=== PATIENT | male | born 1985 | race Caucasian/White ===

== ENCOUNTER 2017-01-13 12:53 | Day surgery (SDC) | payer OTHER ==
[~2017-01-13] VITALS: Ht 200.7 cm; Wt 115.7 kg
[~2017-01-13 12:53] MED LIST: PROMETHAZI6.25 MG/5 PO; ZOFRAN ODT4 MG PO
--- NOTE | 2017-01-13 15:09 | NUR ---
01/13/17 1509 Laura Garza PT ASLEEP. 1501: PT ARRIVED TO PACU REPONDING AND TALKING TO RN.
--- NOTE | 2017-01-14 15:15 | OR ---
[facility] [address], [place] [address] Signed DATE OF PROCEDURE: 01/13/17 PREOPERATIVE DIAGNOSIS Left-sided abdominal pain, negative CT for diverticulitis. POSTOPERATIVE DIAGNOSIS: Normal-appearing colon and ilium, mild proctitis. PROCEDURE Total colonoscopy to cecum with intubation of the ileum and biopsy of ileum and rectum. SURGEON: Galilea Kerns MD. ANESTHESIA: Intravenous sedation with Fentanyl 100 mcg and Versed 6 mg. INDICATION This 31-year-old white man is a patient of Dr. Gerardo Warren of [place], [place], and seen by me on December 06, 2016. He was self-referred for nausea and left lower abdominal pain, history of rectal bleeding, and possible hemoptysis. The patient was treated in the past for pneumonia. He had fevers and blood in the stool and was treated with Cipro and Flagyl. Most of the symptoms resolved. He did have progressive cough, however, and a CT scan of the abdomen and pelvis with contrast performed on November 28, 2016, confirmed no evidence of diverticulosis, but did show some atelectatic changes or possible pneumonia. His as well as his 2-year-old child have also had "pneumonia." Concern is maintained for possible ventilation issues in the home including mold and so on. No such findings have been discovered so far he says. He did have associated diarrhea which was entirely cleared up. A left lower lung base pneumonia, which was seen on the CT scan, is clinically resolving. He is admitted at this time to undergo colonoscopy to better characterize the left-sided abdominal pain problem understanding the risks of bleeding, infection, and perforation. FINDINGS The prep was excellent. Complete colonoscopy was undertaken to the cecum. The scope was passed into the ilium without problem. The ilium appeared normal. The biopsies were obtained to assess for occult inflammatory bowel disease. There was mild proctitis and biopsies of the rectum obtained as well. I saw no evidence of diverticulosis, colitis proper, neoplasm or other issues. DESCRIPTION OF PROCEDURE The patient brought to [facility] endoscopy suite and placed in lateral decubitus position. Given intravenous sedation to the point of slurred speech and nystagmus. Digital rectal examination was normal. Electronically Signed By: GALILEA KERNS MD 01/14/17 1515 PATIENT NAME: ALY RUBALCAVA OPERATIVE REPORT DATE OF : 85 PHYSICIAN: GALILEA KERNS MD REPORT #: [id number] REPORT IS CONFIDENTIAL AND NOT TO BE RELEASED WITHOUT AUTHORIZATION [facility] [address] [place], [place] [address] Signed An Olympus video colonoscope was passed in the rectum and manipulated throughout the colon ultimately intubating the cecum without problem. The ileocecal valve was easily intubated and the terminal ilium entered. Lymphoid aggregates in the submucosal area were noted. Biopsies were obtained, although there was no clear evidence of inflammatory bowel disease. The scope was withdrawn to the cecum and biopsies taken there as well. Careful withdrawal of scope showed no sign of abnormality throughout withdrawal the scope, specifically no polyps, diverticular formation, colitis, or cancer. Retroflex view in the rectum was reasonably normal, though there was mild proctitis, probably bowel prep related. The scope was removed and the patient was taken to recovery room in good condition. CONCLUDING DIAGNOSIS No evidence of diverticulosis or inflammatory bowel disease or neoplasm. PLAN He will return to see us in 4-8 weeks. He will maintain a regular diet with added fiber as tolerated. Should he have problems in the meantime, he will let us know. MD BARTOLO Delacruz/Yuridia /[id number] cc: Gerardo Warren MD Electronically Signed By: GALILEA KERNS MD 01/14/17 1515 PATIENT NAME: GEORGELAVELLEALY OPERATIVE REPORT DATE OF : 85 PHYSICIAN: GALILEA KERNS MD REPORT #: [id number] REPORT IS CONFIDENTIAL AND NOT TO BE RELEASED WITHOUT AUTHORIZATION
== END 2017-01-13 15:39 | disposition home or self-care (01) ==
LOC: OPS 12:53 → DS 12:53 → OPS 14:00
PROVIDERS: Surgery
PROC: 0DBP8ZX Excision of Rectum, Via Natural or Artificial Opening Endoscopic, Diagnostic (ICD-10-PCS; 2017-01-13)
PROC: 0DBH8ZX Excision of Cecum, Via Natural or Artificial Opening Endoscopic, Diagnostic (ICD-10-PCS; 2017-01-13)
PROC: 0DBB8ZX Excision of Ileum, Via Natural or Artificial Opening Endoscopic, Diagnostic (ICD-10-PCS; principal; 2017-01-13 14:00)
DX: K62.89 Other specified diseases of anus and rectum (principal); Z85.118 Personal history of other malignant neoplasm of bronchus and lung; Z98.890 Other specified postprocedural states
CPT/HCPCS: 99152; 99153; J2250; J3010; J7120